=== PATIENT | male | born 1985 | race African-American/Black ===

== ENCOUNTER 2019-04-01 03:27 | Emergency (ER) | payer OTHER ==
[~2019-04-01] VITALS: Ht 200.7 cm; Wt 96.8 kg
[2019-04-01 04:24] LABS: CHLORIDE 108 mEq/L (98-107)
[2019-04-01] MEDS ORDERED: ALTEPLASE 100MG/VIAL IV STA (04:24)
[2019-04-01] MEDS ORDERED: ALTEPLASE 81 MG in BAG 1 EACH IV STA (04:24)
[2019-04-01 04:26] LABS: INR 1.1; PROTHROMBIN TIME 11.7 sec (9.6-11.0)
[2019-04-01 04:28] LABS: BASOPHILS % 0.7 % (0.0-2.0); EOSINOPHILS % 2.7 % (0.0-5.0); ETHANOL BLOOD < 10 mg/dL; HEMATOCRIT. 42.7 % (42.0-52.0); HEMOGLOBIN. 14.1 g/dL (14.0-18.0); LYMPHOCYTES % 55.3 % (20.0-50.0); MEAN CORPUSCULAR HEMOGLOBIN 28.8 pg (28.0-32.0); MEAN CORPUSCULAR VOLUME 86.8 fL (80.0-94.0); MEAN PLATELET VOLUME 9.1 fl (7.4-10.4); MONOCYTES % 8.4 % (2.0-8.0); NEUTROPHILS % 32.9 % (40.0-76.0); PLATELET 211 x1000/uL (130-400); RED BLOOD CELL COUNT 4.92 mill/uL (4.7-6.1); RED CELL DISTRIBUTION WIDTH 14.5 % (11.6-14.6)
[2019-04-01 04:30] LABS: LDL CHOLESTEROL 60 mg/dL (5-100)
[2019-04-01] MEDS ORDERED: ASPIRIN 325MG TABLET PO ONE (06:15)
[2019-04-01] MEDS ORDERED: IOHEXOL-350 100 ML BOTTLE ONE (06:25)
[2019-04-01 07:15] VITALS: BP 124/88
== END 2019-04-01 08:44 | disposition short-term general hospital (02) ==
LOC: ER 03:27 → CANBEDREQ 06:33 → ER 08:44
DX: I63.9 Cerebral infarction, unspecified (principal); I11.0 Hypertensive heart disease with heart failure; I50.9 Heart failure, unspecified
CPT/HCPCS: 36415; 70450; 70496; 71045; 80053; 80320; 82962; 83721; 84484; 85025; 85610; 93005; 99285; J2997; Q9967; G0480